=== PATIENT | female | born 1995 | race Caucasian/White ===

== ENCOUNTER 2018-06-25 13:45 | Emergency (ER) | payer SELFPAY ==
[2018-06-25] MEDS ORDERED: ASPIRIN 81 MG TABLET, CHEWABLE PO ONE (14:57)
--- NOTE | 2018-06-25 15:00 | ER Document Report ---
ED Medical Screen (RME) - General Chief Complaint: Shortness Of Breath Stated Complaint: VOMITING Time Seen by Provider: 06/25/18 14:54 Mode of Arrival: Ambulatory Information source: Patient Notes: Patient is a 23-year-old female who presents with chief complaint of chest tightness, shortness of breath and vomiting. Patient reports that the chest pain started last night, she states that it feels like a tightness across her chest with a sharp pain that goes straight through to her back. Patient started vomiting at about 2 AM. Patient does report a history of anxiety but states that this feels much different. Exam: Reproducible midsternal chest pain. Lung sounds clear and equal bilaterally. I have greeted and performed a rapid initial assessment of this patient. A comprehensive ED assessment and evaluation of the patient, analysis of test results and completion of the medical decision making process will be conducted by additional ED providers. Dictation of this chart was performed using voice recognition software; therefore, there may be some unintended grammatical errors. TRAVEL OUTSIDE OF THE [place] IN LAST 30 DAYS: Yes Past Medical History - Social History Frequency of alcohol use: None Drug Abuse: Marijuana Renal/ Medical History: Denies: Hx Peritoneal Dialysis Physical Exam - Vital signs Vitals: Temp Pulse Resp BP Pulse Ox 98.5 F 62 16 141/91 H 99 06/25/18 13:59 06/25/18 13:59 06/25/18 13:59 06/25/18 13:59 06/25/18 13:59 Course - Vital Signs Vital signs: Temp Pulse Resp BP Pulse Ox 98.5 F 62 16 141/91 H 99 06/25/18 13:59 06/25/18 13:59 06/25/18 13:59 06/25/18 13:59 06/25/18 13:59
[2018-06-25] MEDS ORDERED: ONDANSETRON 4 MG TAB.RAPDIS PO ONE (15:17)
--- NOTE | 2018-06-25 15:48 | RADIOLOGY REPORT (SQ) ---
EXAM DESCRIPTION: CHEST SINGLE VIEW COMPLETED DATE/TIME: 06/25/2018 3:40 pm REASON FOR STUDY: chest pain with shortness of breath COMPARISON: None. EXAM PARAMETERS: NUMBER OF VIEWS: One view. TECHNIQUE: Single frontal radiographic view of the chest acquired. RADIATION DOSE: NA LIMITATIONS: None. FINDINGS: LUNGS AND PLEURA: No opacities, masses or pneumothorax. No pleural effusion. MEDIASTINUM AND HILAR STRUCTURES: No masses. Contour normal. HEART AND VASCULAR STRUCTURES: Heart normal in size. Normal vasculature. BONES: No acute findings. HARDWARE: None in the chest. OTHER: No other significant finding. IMPRESSION: NO ACUTE RADIOGRAPHIC FINDING IN THE CHEST. TECHNICAL DOCUMENTATION: JOB ID: [id number] [employer]- All Rights Reserved Reading location - IP/workstation name: [email or web address]
[2018-06-25 15:52] LABS: ABSOLUTE LYMPHOCYTES (AUTO) 2.1 10^3/uL (0.5-4.7); ABSOLUTE MONOCYTES (AUTO) 0.5 10^3/uL (0.1-1.4); ABSOLUTE NEUT (AUTO) 15.5 10^3/uL (1.7-8.2); BASOPHILS % (AUTO) 0.1 % (0-2); EOSINOPHILS % (AUTO) 0.1 % (0-6); HEMOGLOBIN 14.6 g/dL (12.0-15.5); LYMPHOCYTES % (AUTO) 11.8 % (13-45); MEAN CORPUSCULAR HEMOGLOBIN 30.2 pg (27.0-33.4); MEAN CORPUSCULAR HGB CONC 33.2 g/dL (32.0-36.0); MEAN CORPUSCULAR VOLUME 91 fl (80-97); PLATELET COUNT 392 10^3/uL (150-450); RED BLOOD COUNT 4.84 10^6/uL (3.72-5.28); RED CELL DISTRIBUTION WIDTH 14.5 % (11.5-14.0); TOTAL CELLS COUNTED % (AUTO) 100 %; WHITE BLOOD COUNT 18.2 10^3/uL (4.0-10.5)
[2018-06-25 16:16] LABS: ALANINE AMINOTRANSFERASE 23 U/L (9-52); ALBUMIN 4.5 g/dL (3.5-5.0); ALKALINE PHOSPHATASE 83 U/L (38-126); ANION GAP 13 (5-19); ASPARTATE AMINO TRANSFERASE 21 U/L (14-36); BILIRUBIN,DIRECT 0.3 mg/dL (0.0-0.4); BILIRUBIN,TOTAL 0.4 mg/dL (0.2-1.3); BLOOD UREA NITROGEN 9 mg/dL (7-20); CALCIUM 9.9 mg/dL (8.4-10.2); CARBON DIOXIDE 25 mmol/L (22-30); CHLORIDE 105 mmol/L (98-107); CREATINE KINASE 36 U/L (30-135); GLUCOSE 111 mg/dL (75-110); POTASSIUM 4.5 mmol/L (3.6-5.0); SODIUM 142.9 mmol/L (137-145); TOTAL PROTEIN 8.6 g/dL (6.3-8.2)
[2018-06-25 16:29] LABS: TROPONIN I < 0.012 ng/mL
--- NOTE | 2018-06-25 19:16 | EKG REPORT ---
SEVERITY:- NORMAL ECG - SINUS RHYTHM : Confirmed by: Rio Rico MD 25-Jun-2018 19:15:46
[2018-06-25] MEDS ORDERED: KETOROLAC TROMETHAMINE INJ/PF 30 MG/1 ML SDV IV ONE (20:12)
[2018-06-25] MEDS ORDERED: RINGERS SOLUTION,LACTATED 1,000 ML IV ONE (20:12)
[2018-06-25] MEDS ORDERED: METOCLOPRAMIDE HCL INJ/PF 10 MG/2 ML SDV IV ONE (20:12)
--- NOTE | 2018-06-25 20:14 | ER Document Report ---
ED General - General Chief Complaint: Shortness Of Breath Stated Complaint: VOMITING Time Seen by Provider: 06/25/18 14:54 Mode of Arrival: Ambulatory Notes: Patient is a 23 year old female without chronic medical problems who presents 8 hours of nausea, vomiting, diarrhea and upper abdominal pain. The patient reports that the symptoms started gradually and have aggressively worsened over that time. Nothing improves or worsens her symptoms. She does describe proper abdominal pain as being an aching, burning, throbbing pain. She denies a history of similar symptoms in the past. She is uncertain whether or not she has sick contacts. No history of abdominal surgeries. She has not contacted her primary care doctor regarding today's concerns. She denies associated fever but does state that she has generalized body aches. She does note that she has been able to tolerate oral intake since arrival here in the emergency department. - Related Data Allergies/Adverse Reactions: Penicillins Allergy (Verified 06/25/18 19:00) Past Medical History - General Information source: Patient - Social History Smoking Status: Current Every Day Smoker Frequency of alcohol use: None Drug Abuse: Marijuana Family History: Reviewed & Not Pertinent Patient has suicidal ideation: No Patient has homicidal ideation: No Endocrine Medical History: Reports: Hx Diabetes Mellitus Type 2 Renal/ Medical History: Denies: Hx Peritoneal Dialysis Review of Systems - Review of Systems Notes: Constitutional: Negative for fever. HENT: Negative for sore throat. Eyes: Negative for visual changes. Cardiovascular: Negative for chest pain. Respiratory: Negative for shortness of breath. Gastrointestinal: Positive for abdominal pain, vomiting and diarrhea Genitourinary: Negative for dysuria. Musculoskeletal: Negative for back pain. Skin: Negative for rash. Neurological: Negative for headaches, weakness or numbness. 10 point ROS negative except as marked above and in HPI. Physical Exam - Vital signs Vitals: Temp Pulse Resp BP Pulse Ox 98.5 F 62 16 141/91 H 99 06/25/18 13:58 06/25/18 13:58 06/25/18 13:58 06/25/18 13:58 06/25/18 13:58 Interpretation: Normal Notes: PHYSICAL EXAMINATION: GENERAL: Appears moderately unwell but in no acute distress HEAD: Atraumatic, normocephalic. EYES: Pupils equal round and reactive to light, extraocular movements intact, sclera anicteric, conjunctiva are normal. ENT: nares patent, oropharynx clear without exudates. Moderately dry mucous membranes. NECK: Normal range of motion, supple without lymphadenopathy LUNGS: Breath sounds clear to auscultation bilaterally and equal. No wheezes rales or rhonchi. HEART: Regular rate and rhythm without murmurs ABDOMEN: Soft, mild epigastric and right upper quadrant abdominal tenderness without any additional areas of palpation tenderness, normoactive bowel sounds. No guarding, no rebound. No masses appreciated. EXTREMITIES: Normal range of motion, no pitting or edema. No cyanosis. NEUROLOGICAL: No focal neurological deficits. Moves all extremities spontaneously and on command. PSYCH: Normal mood, normal affect. SKIN: Warm, Dry, normal turgor, no rashes or lesions noted. Course - Re-evaluation Re-evalutation: 06/25/18 20:13 Patient presents with upper abdominal pain (she does not have chest pain as listed in triage) with associated vomiting and diarrhea ongoing since 2 AM this morning. On abdominal exam she has focal tenderness to her right upper quadrant and epigastrium but no other localized areas of tenderness, rebound or guarding. Her labs are notable for leukocytosis but are otherwise unremarkable. This is a nonspecific finding. History and exam appear most consistent with a likely enteritis however, given the patient's focal tenderness on examination to her upper right and epigastric region will proceed with a right upper quadrant ultrasound to exclude biliary pathology. Also provide IV fluids and p.o. challenge the patient. 06/25/18 22:48 Patient has had resolution of her pain. Repeat abdominal exam remains very benign. No focal tenderness. Right upper quadrant ultrasound without evidence of acute cholecystitis. Patient has tolerated oral intake without difficulty. I have emphasized to the patient that there is some degree of diagnostic uncertainty but that at this point given her overall evaluation I do not suspect any acute life any pathology as the etiology of her presentation today. At this time will discharge with return precautions and follow-up recommendations. Verbal discharge instructions given a the bedside and opportunity for questions given. Medication warnings reviewed. Patient is in agreement with this plan and has verbalized understanding of return precautions and the need for primary care follow-up in the next 24-72 hours. - Vital Signs Vital signs: Temp Pulse Resp BP Pulse Ox 98.5 F 51 L 16 149/99 H 100 06/25/18 22:57 06/25/18 22:57 06/25/18 22:57 06/25/18 22:57 06/25/18 22:57 - Laboratory Result Diagrams: 06/25/18 15:20 06/25/18 15:20 Laboratory results interpreted by me: 06/25/18 06/25/18 15:20 15:20 WBC 18.2 H RDW 14.5 H Seg Neutrophils % 85.0 H Lymphocytes % 11.8 L Absolute Neutrophils 15.5 H Glucose 111 H Total Protein 8.6 H - Diagnostic Test Radiology reviewed: Image reviewed, Reports reviewed Radiology results interpreted by me: 06/25/18 22:49 Chest x-ray: No acute infiltrate or pneumothorax - EKG Interpretation by Me Additional EKG results interpreted by me: 06/25/18 22:49 Sinus rhythm. Rate 62. No ST elevations or depressions. QTC is 443. Discharge - Discharge Clinical Impression: Vomiting and diarrhea, Upper abdominal pain Leukocytosis Qualifiers: Leukocytosis type: unspecified Qualified Code(s): D72.829 - Elevated white blood cell count, unspecified Condition: Good Disposition: HOME, SELF-CARE Additional Instructions: Your symptoms are likely due to a viral illness and should resolve in the next several days. You can take [id number] loperamide also known as Imodium as needed for diarrhea per box instructions. Continue to stay hydrated with plenty of solution such as Gatorade or Pedialyte. You are being prescribed Zofran to take as needed for nausea and vomiting. Please return if you develop severe abdominal pain, pass out, become unable to tolerate any oral fluids for 12 more hours, or any other symptoms that are concerning to you.
--- NOTE | 2018-06-25 22:30 | RADIOLOGY REPORT (SQ) ---
US ABDOMEN LIMITED EXAM DATE: 06/25/2018 20:12 HISTORY: Upper abdominal pain. Vomiting. COMPARISON: None. TECHNIQUE: Grayscale and color Doppler imaging of the right upper quadrant was performed. FINDINGS: Liver is mildly enlarged, measuring 17.4 cm. Normal liver echogenicity. No perihepatic ascites is seen. Multiple shadowing gallstones are seen. No pericholecystic fluid or gallbladder wall thickening. Common bile duct measures 1 to 2 mm. No intrahepatic biliary ductal dilatation. The pancreas is not visualized due to overlying bowel gas. Right kidney measures 11.6 cm in length, without hydronephrosis. Visualized portions of the IVC and aorta are patent. IMPRESSION: Cholelithiasis without evidence of acute cholecystitis.
[2018-06-25] MEDS ORDERED: ONDANSETRON ODT 4 MG TAB (6 TAB/ER DISP) PO PRN (22:50)
[2018-06-25 23:08] VITALS: BP 149/99
== END 2018-06-25 23:08 | disposition home or self-care (01) ==
LOC: ER 13:45
DX: R11.2 Nausea with vomiting, unspecified (principal); R19.7 Diarrhea, unspecified; R10.10 Upper abdominal pain, unspecified; R10.816 Epigastric abdominal tenderness; R10.811 Right upper quadrant abdominal tenderness; D72.829 Elevated white blood cell count, unspecified; E11.9 Type 2 diabetes mellitus without complications; F17.200 Nicotine dependence, unspecified, uncomplicated; Z88.0 Allergy status to penicillin
CPT/HCPCS: 93005; 99285; 96361; 96374; 96375; 36415; 82553; 82550; 85025; 80053; 84484; 71045; 76705; 93010; S0119; J1885; J2765; J7120